=== PATIENT | male | born 1950 | race Caucasian/White ===

== ENCOUNTER 2016-09-18 11:34 | Emergency (ER) | payer MEDICARE ==
[~2016-09-18] VITALS: Wt 77.1 kg
[~2016-09-18 11:34] MED LIST: AMOXICILLIN500 M3 PO; ASPIRIN81 M1 PO; ATORVASTATIN CA20 M1 PO; DECADRON4 MG PO; FAMOTIDINE20 M1 PO; LANTUS SOLOS100 U/M1 SC; LEVETIRACETAM500 MG PO; LORAZEPAM0.5 MG PO; MACROBID100 M1 PO; MELOXICAM15 MG PO; MOTRIN800 MG PO; OXYCODONE AND A1 T12 PO; OXYCODONE HCL5 MG PO; PERCOCET 325 MG1 TA2 PO; PERCOCET 325 MG1 TA3 PO; PERCOCET 325 MG1 TA8 PO; SYMBICORT1 AE1 INH; VICODIN 5/500 505 MG PO; VITAMIN E100 I1 PO; VITAMIN E400 UNI1 PO; WARFARIN SODIU2.5 MG PO; [UNRECOGNIZED DRUG - OTHER] PO
[2016-10-07] MEDS ORDERED: OXYCODONE5 M1 PO (21:53)
[2016-10-07] MEDS ORDERED: NUED1CAP PO (21:54)
[2016-10-07] MEDS ORDERED: PHENYTOIN100 MG/41 PO (21:58)
[2016-10-07] MEDS ORDERED: KEPPRA750 MG PO ×2 (21:59→22:05)
[2016-10-07] MEDS ORDERED: ROBAXIN-750750 MG PO (22:00)
[2016-10-07] MEDS ORDERED: VISTARIL25 M2 PO (22:00)
== END 2016-09-18 15:14 | disposition home or self-care (01) ==
LOC: ED 11:34
DX: T82.898A Other specified complication of vascular prosthetic devices, implants and grafts, initial encounter (principal); T82.9XXA Unspecified complication of cardiac and vascular prosthetic device, implant and graft, initial encounter; Z79.01 Long term (current) use of anticoagulants; Z79.899 Other long term (current) drug therapy

== ENCOUNTER 2016-12-06 21:02 | Inpatient (IN) | payer MEDICARE ==
[~2016-12-06] VITALS: Ht 172.7 cm; Wt 76.9 kg
--- NOTE | ~2016-12-06 | CON ---
[place], [place] REPORT OF CONSULTATION NAME: JASVIR CARBAJAL JR UNIT #: [id number] ROOM: 405 DOCTOR: AARON BRADY MD BIRTHDATE: [birth year] DOS: 12/07/2016 ADDENDUM After reviewing the case, examining the chart, discussing the case, I agree with the above note as described by Infectious Disease consult on that date. AARON BRADY MD CM:CONSTR:REPORT OF CONSULTATION 2131 12/10/16 0647 interface
--- NOTE | ~2016-12-06 | CON ---
[place], [place] REPORT OF CONSULTATION NAME: JASVIR CARBAJAL JR UNIT #: [id number] ROOM: 405 DOCTOR: FRANCIA MARLEY,NOVEMBER BIRTHDATE: [birth year] DOS: 12/07/2016 HISTORY OF PRESENT ILLNESS: The patient is a 66-year-old male who is admitted from home yesterday with a temperature of 105. He has had a history over the last 6 months to a year of brain abscesses requiring four different surgeries. He last was discharged home from [facility] in August on IV antibiotics at that time. Family is not sure at what antibiotics. He apparently had issues with the med line that was removed. He did not complete his IV antibiotics. He refused to go back to [facility], which is where he was most recently being treated for any further evaluation. He is comfort care only and refuses any further surgical procedures regarding brain abscess, etc. He has had a CT of the head that showed no acute intracranial process with improving areas of low attenuation in the left frontal lobe compared to prior exam with interval craniotomy defect, left parietal lobe and bur hole on frontal bone, interval improvement, and left-sided ventricular dilatation, and midline shift. He was started on vancomycin and Zosyn, at the time of admission, his temp was documented yesterday at 104.2 with a pulse of 130. His blood cultures are negative. His white count was 17.2 on admission and is now up to 21.6. He has no complaints of abdominal pain. He has been having issues at home with constipation. His last BM was 3 days ago. He has had no imaging of the abdomen and his chest x-ray is clear. PAST MEDICAL HISTORY: As above as well as anxiety, chronic pain, right hemiparesis due to his prior surgeries for his brain abscess, seizure disorder, and anemia. SOCIAL HISTORY: Reformed smoker, nondrinker. FAMILY MEDICAL HISTORY: Significant for mother with uterine cancer. ALLERGIES: No known drug allergies. LABORATORY DATA: Influenza is negative. Blood culture is negative. WBC 21.6, platelets 186. BUN 11 and creatinine 0.48. UA with +1 leukocyte esterase, not impressive, wbc's are only 16-20 per high powered field, negative for nitrites. REVIEW OF SYSTEMS: As above in history of present illness. He has had no emesis. No cough, no shortness of breath. No rash or itch. Has multiple tattoos. Again, he has right-sided hemiparesis. Has a Dukes catheter and currently does not normally have Dukes catheter at home. Does have difficulty with urination at times according to the family. Continues to complain of some abdominal discomfort. Further review of systems is unremarkable. Speech is very difficult to make out. PHYSICAL EXAMINATION: VITAL SIGNS: Temperature 97.6, pulse 85, respirations 18, BP 93/47. GENERAL: A 66-year-old male, in no acute distress. HEAD, EYES, EARS, NOSE AND THROAT: With some frontal scars noted, he has right facial droop. Does have thrush. NECK: Supple. [place], [place] REPORT OF CONSULTATION NAME: JASVIR CARBAJAL JR UNIT #: [id number] ROOM: [facility] DOCTOR: FRANCIA MARLEYNOVEMBER BIRTHDATE: [birth year] LUNGS: Clear to auscultation bilaterally. Respirations even and unlabored. HEART: Regular rhythm. No murmur appreciated. ABDOMEN: Soft, positive bowel sounds. Tender lower mid abdomen and lower right quadrant, mild tenderness in the right upper quadrant. Nondistended. EXTREMITIES: Right upper extremity +1 edema. He has right hemiparesis. No other peripheral edema or deformity. SKIN: Warm, dry, free of rashes. Multiple tattoos noted. PEG in place. No discharge or cellulitis. ASSESSMENT: Sepsis, possibly intraabdominal. PLAN: At this point, we will continue the vancomycin and Zosyn. He was originally hospitalized at [facility], we will obtain records from that may also need to be in contact with Tom regarding the prior brain abscesses. He needs a stat CT of the abdomen and pelvis. The patient does not want any further aggressive treatment, but he is agreeable to the CAT scan. Case discussed with Dr. Brien Flores. RASTA FELDMAN CNP SHOSHANA PETERSON DO CM:CONSTR:REPORT OF CONSULTATION 180 12/07/167 interface
[~2016-12-06 21:02] MED LIST changes: +KEPPRA750 MG PO; +NUED1CAP PO; +OXYCODONE5 M1 PO; +PHENYTOIN100 MG/41 PO; +ROBAXIN-750750 MG PO; +VISTARIL25 M2 PO
[2016-12-06 21:22] VITALS: BP 137/84
[2016-12-06 21:24] LABS: BILIRUBIN NEGATIVE (NEGATIVE); BLOOD NEGATIVE (NEGATIVE); CLARITY SL CLOUDY (CLEAR); COLOR YELLOW (YELLOW); GLUCOSE NEGATIVE (NEGATIVE); KETONE NEGATIVE (NEGATIVE); LEUKO ESTERASE 1+ (NEGATIVE); NITRITE NEGATIVE (NEGATIVE); PROTEIN NEGATIVE (NEGATIVE); SPECIFIC GRAVITY 1.015 (1.005-1.030)
[2016-12-06 21:31] LABS: BACTERIA 1+; RBC 0-2 rbc/hpf (0-2); WBC 16-20 wbc/hpf (0-5)
[2016-12-06 23:15] LABS: HEMATOCRIT 36.5 % (42.0-52.0); HEMOGLOBIN 12.8 g/dl (14.0-18.0); MEAN CELL VOLUME 81.1 fl (80.0-94.0); MEAN CORPUSCULAR HGB 28.4 pg (27.0-31.0); MEAN CORPUSCULAR HGB CONC 35.1 g/dl (33.0-37.0); MEAN PLATELET VOLUME 8.8 fl (9.6-12.3); PLATELET COUNT AUTOMATED 200 10*3/uL (130-400); WHITE BLOOD COUNT 17.5 10*3/uL (4.8-10.8)
[2016-12-06 23:32] LABS: ALBUMIN 3.1 gm/dl (3.1-4.5); ALKALINE PHOSPHATASE 129 U/L (45-117); BILIRUBIN, DIRECT 0.2 mg/dL (0.0-0.2); BILIRUBIN, TOTAL 0.5 mg/dl (0.2-1.0); BUN 8 mg/dl (7-24); CARBON DIOXIDE 25 mmol/L (21-32); CHLORIDE 102 mmol/L (98-107); EST GLOM FILT AFRICAN AMERICAN > 60 ml/min; GLUCOSE 152 mg/dL (65-99); MAGNESIUM 1.5 mg/dL (1.5-2.1); POTASSIUM 3.6 mmol/L (3.5-5.1); SGOT/AST 12 IU/L (3-35); SODIUM 140 mmol/L (136-145); TOTAL PROTEIN 6.2 gm/dL (6.4-8.2)
[2016-12-06 23:38] LABS: EOSINOPHIL # 0.4 10*3/uL (0-0.4); EOSINOPHILS 2 % (1-4); LYMPHOCYTE # 1.1 10*3/uL (1.3-4.4); MONOCYTE # 1.8 10*3/uL (0.1-1.0); NEUTROPHIL # 14.4 10*3/uL (2.3-7.9); NEUTROPHILS 82 % (47-73); PLATELET SUFFICIENCY NORMAL (NORMAL); TOTAL CELLS COUNTED 100 #CELLS
[2016-12-06 23:44] LABS: SGPT/ALT < 6 U/L (12-78); TROPONIN I < 0.015 ng/ml (<0.045)
[2016-12-07] VITALS (8 sets, daily range): BP systolic 86–108; BP diastolic 47–73
[2016-12-07 06:48] LABS: INTERNATIONAL NORM RATIO 1.1 (2.0-3.5); PROTHROMBIN TIME 11.4 SECONDS (9.0-12.4)
[2016-12-07 07:10] LABS: HEMOGLOBIN 11.9 g/dl (14.0-18.0); MEAN CELL VOLUME 82.7 fl (80.0-94.0); MEAN PLATELET VOLUME 8.8 fl (9.6-12.3); PLATELET COUNT AUTOMATED 186 10*3/uL (130-400); RED BLOOD COUNT 4.11 10*6/uL (4.50-5.90); RED CELL DISTRI WIDTH 13.2 % (0-14.5); WHITE BLOOD COUNT 21.6 10*3/uL (4.8-10.8)
[2016-12-07 07:22] LABS: BUN 11 mg/dl (7-24); CARBON DIOXIDE 29 mmol/L (21-32); CHLORIDE 105 mmol/L (98-107); EST GLOM FILT AFRICAN AMERICAN > 60 ml/min; GLUCOSE 133 mg/dL (65-99); POTASSIUM 3.8 mmol/L (3.5-5.1); SODIUM 143 mmol/L (136-145)
[2016-12-07 07:27] LABS: CHOLESTEROL 120 mg/dL (<200); HDL CHOLESTEROL 42 mg/dl (40-60); LDL CHOLESTEROL 53 mg/dL (9-159); TRIGLYCERIDES 126 mg/dl (<150); VLDL CHOLESTEROL 25 mg/dL (6-40)
[2016-12-07 07:28] LABS: EOSINOPHIL # 0.2 10*3/uL (0-0.4); EOSINOPHILS 1 % (1-4); LYMPHOCYTE # 2.4 10*3/uL (1.3-4.4); MONOCYTE # 1.3 10*3/uL (0.1-1.0); NEUTROPHIL # 17.7 10*3/uL (2.3-7.9); NEUTROPHILS 82 % (47-73); TOTAL CELLS COUNTED 100 #CELLS
[2016-12-07 07:29] LABS: PLATELET SUFFICIENCY NORMAL (NORMAL)
[2016-12-08] VITALS: BP 143/77
[2016-12-08 07:07] LABS: BASO # 0.1 10*3/uL (0.0-0.1); BASO % 0.4 % (0.0-1.0); EOS # 0.4 10*3/uL (0.0-0.4); HEMATOCRIT 33.1 % (42.0-52.0); HEMOGLOBIN 11.4 g/dl (14.0-18.0); IG # 0.1 10*3/uL (0.0-0.1); LYMPH # 1.6 10*3/uL (1.3-4.4); LYMPH % 11.9 % (27.0-41.0); MEAN CELL VOLUME 84.9 fl (80.0-94.0); MEAN CORPUSCULAR HGB 29.2 pg (27.0-31.0); MEAN CORPUSCULAR HGB CONC 34.4 g/dl (33.0-37.0); MEAN PLATELET VOLUME 8.9 fl (9.6-12.3); MONO # 0.8 10*3/uL (0.1-1.0); MONO % 5.9 % (3.0-9.0); NEUT # 10.8 10*3/uL (2.3-7.9); NEUT % 78.4 % (47.0-73.0); PLATELET COUNT AUTOMATED 182 10*3/uL (130-400); RED CELL DISTRI WIDTH 13.3 % (0-14.5); WHITE BLOOD COUNT 13.8 10*3/uL (4.8-10.8)
[2016-12-08 07:36] LABS: BUN 11 mg/dl (7-24); CARBON DIOXIDE 27 mmol/L (21-32); CHLORIDE 107 mmol/L (98-107); EST GLOM FILT AFRICAN AMERICAN > 60 ml/min; GLUCOSE 93 mg/dL (65-99); POTASSIUM 3.6 mmol/L (3.5-5.1); SODIUM 142 mmol/L (136-145)
[2016-12-08 08:00] VITALS: BP 134/78
[2016-12-08] MEDS ORDERED: VANCOMYCIN HYDRO1 GM IV (10:08)
[2016-12-08] MEDS ORDERED: ZOSYN1 SO1 IV (10:08)
[2016-12-08 12:00] VITALS: BP 126/84
[2016-12-08 16:00] VITALS: BP 146/90
== END 2016-12-08 17:49 | disposition home health service (06) | DRG 871 ==
LOC: ED 21:02 → EDHOLD 12-07 00:26 → 4E 12-07 00:41
PROVIDERS: Emergency Medicine; Hospitalist; Internal Medicine
PROC: 02HV33Z Insertion of Infusion Device into Superior Vena Cava, Percutaneous Approach (ICD-10-PCS; principal; 2016-12-08)
PROC: 0DP6XUZ Removal of Feeding Device from Stomach, External Approach (ICD-10-PCS; principal; 2016-12-08)
DX: A41.9 Sepsis, unspecified organism (principal); G93.41 Metabolic encephalopathy; G06.0 Intracranial abscess and granuloma; G81.91 Hemiplegia, unspecified affecting right dominant side; N30.00 Acute cystitis without hematuria; E44.0 Moderate protein-calorie malnutrition; M00-M99 Diseases of the musculoskeletal system and connective tissue; M87.121 Osteonecrosis due to drugs, right humerus; R65.20 Severe sepsis without septic shock; G40.909 Epilepsy, unspecified, not intractable, without status epilepticus; F41.9 Anxiety disorder, unspecified; E78.5 Hyperlipidemia, unspecified; R73.9 Hyperglycemia, unspecified; G83.9 Paralytic syndrome, unspecified; G89.29 Other chronic pain; D64.9 Anemia, unspecified; Z87.891 Personal history of nicotine dependence; Z79.899 Other long term (current) drug therapy; Z68.25 Body mass index [BMI] 25.0-25.9, adult; Z83.3 Family history of diabetes mellitus; T38.0X5A Adverse effect of glucocorticoids and synthetic analogues, initial encounter